=== PATIENT | female | born 1945 | race African-American/Black ===

== ENCOUNTER 2017-01-05 07:44 | Emergency (ER) | payer MEDICARE, MEDICAID ==
[~2017-01-05] VITALS: Ht 167.6 cm; Wt 70.0 kg
[2017-01-05] MEDS ORDERED: SODIUM CHLORIDE 0.9% 1,000 ML IV ONE (08:58)
[2017-01-05] MEDS ORDERED: KETOROLAC 30MG/ML VIAL IV STA (08:58)
[2017-01-05] MEDS ORDERED: ONDANSETRON HCL 4MG/2ML VIAL IV STA (08:58)
[2017-01-05 09:33] LABS: BASOPHILS % 0.7 % (0.0-2.0); EOSINOPHILS % 2.5 % (0.0-5.0); HEMOGLOBIN. 14.5 g/dL (12.0-16.0); LYMPHOCYTES % 29.1 % (20.0-50.0); MEAN CORPUSCULAR VOLUME 86.3 fL (81.0-99.0); MEAN PLATELET VOLUME 9.4 fl (7.4-10.4); MONOCYTES % 6.5 % (2.0-8.0); NEUTROPHILS % 61.2 % (40.0-76.0); PLATELET 244 x1000/uL (130-400); RED BLOOD CELL COUNT 4.98 mill/uL (4.2-5.4); RED CELL DISTRIBUTION WIDTH 13.8 % (11.6-14.6)
[2017-01-05 09:34] LABS: CLARITY URINE CLEAR (CLEAR); COLOR URINE YELLOW (YELLOW); GLUCOSE URINE NEGATIVE (NEGATIVE); KETONES URINE NEGATIVE (NEGATIVE); LEUKOCYTE ESTERASE URINE 3+ (NEGATIVE); NITRITE URINE NEGATIVE (NEGATIVE); OCCULT BLOOD URINE NEGATIVE (NEGATIVE); PROTEIN URINE NEGATIVE (NEGATIVE); SPECIFIC GRAVITY URINE 1.018 (1.005-1.030); UROBILINOGEN URINE 0.2 E.U./dL (0.2-1.0)
[2017-01-05 09:35] LABS: CHLORIDE 104 mEq/L (98-107)
[2017-01-05 09:37] LABS: PROTHROMBIN TIME 10.7 sec (9.4-11.6)
[2017-01-05 09:44] LABS: CARBON DIOXIDE 28 mEq/L (21-32)
[2017-01-05] MEDS ORDERED: CLONIDINE 0.1MG TABLET PO ONE (10:30)
[2017-01-05] MEDS ORDERED: CEFTRIAXONE 1 G PREMIX 50 ML IV ONE (10:30)
[2017-01-05 13:07] VITALS: BP 154/91
== END 2017-01-05 13:11 | disposition home or self-care (01) ==
LOC: ER 08:36
DX: N39.0 Urinary tract infection, site not specified (principal); I10 Essential (primary) hypertension
CPT/HCPCS: 36415; 80053; 81001; 83690; 85025; 85610; 96361; 96365; 96375; 99285; J0696; J1885; J2405; J7030